=== PATIENT | female | born 1970 | race African-American/Black ===

== ENCOUNTER 2021-12-04 14:44 | Inpatient (IN) | payer OTHER ==
[~2021-12-04] VITALS: Ht 309.9 cm; Wt 52.2 kg
[2021-12-04] MEDS ORDERED: LAMICTAL150 M1 PO (15:11)
--- NOTE | 2021-12-04 15:11 | NUR ---
PTE SE RECIBE EN [place] Y DESORIENTADA. PTE VINO ACOMPANADA DE CAMARGO HERMANA. PTE TUVO VARIOS EPISODIOS DE EPILEPSIA EL JASON. VIENE REFERIDO POR DR ANDREIA WARD. HERMANA DE PTE VERBALIZA QUE TIENE DOLOR EN LA ESPALDA BAJA. SE MIDE S/V Y SE UBICA EN OBSERVACION CAMA 8. PENDIENTE A EVALUACION MEDICA.
--- NOTE | 2021-12-04 16:45 | NUR ---
TX. OFRECIDO POR MIS. VILLARREAL QUIEN ORIENTA AL PACIENTE SOBRE EL TX. EXTRAE MUESTRAS DE KILLIAN Y CANALIZA BAJO MEDIDAS ASEPTICAS ROTULA Y ENVIA AL LABORATORIO.
--- NOTE | 2021-12-04 23:09 | NUR ---
SE RECIBE PTE ALERTA ORIENTADA X 3,EN ALBERTO CON BARANDAS ELEVADAS POR CAMARGO SEGURIDAD,CANALIZADA CON ANGIO #20 RL,LA AREA RON DE EDEMA Y ERITEMA BAJANDO KCL 40MEQ/1000 BAJANDO A 125 ML/HR BAJANDO POR IVPUMP.PENDIENTE CONSULTA MEDICA CON .
--- NOTE | 2021-12-05 00:40 | NUR ---
SE ORIENTA PTE Y FAMILIAR SOBRE TX, LO CUAL REFIEREN ENTENDER. SE REALIZA JOSE DE MUESTRAS UTILIZANDO TECNICAS ASEPTICAS.
--- NOTE | 2021-12-05 01:40 | NUR ---
SE REALIZA PROCEDIMIENTO DE SONI JUNTO A RN HERNANDEZ Y RN MENDOZA, UTILIZANDO TECNICAS ASEPTICAS.
== END 2021-12-12 17:28 | disposition home or self-care (01) | DRG 603 ==
LOC: ER 14:44 → MEDI 12-05 02:07
PROVIDERS: ADMIT Internal Medicine; ATTEND Internal Medicine
PROC: B343ZZ3 Ultrasonography of Right Common Carotid Artery, Intravascular (ICD-10-PCS; principal; 2021-12-04)
PROC: BW28ZZZ Computerized Tomography (CT Scan) of Head (ICD-10-PCS; 2021-12-04)
PROC: BW21YZZ Computerized Tomography (CT Scan) of Abdomen and Pelvis using Other Contrast (ICD-10-PCS; 2021-12-04)
PROC: B246ZZZ Ultrasonography of Right and Left Heart (ICD-10-PCS; 2021-12-04)
PROC: BT4JZZZ Ultrasonography of Kidneys and Bladder (ICD-10-PCS; 2021-12-04)
PROC: BR2CYZZ Computerized Tomography (CT Scan) of Pelvis using Other Contrast (ICD-10-PCS; 2021-12-04)
PROC: BW38ZZZ Magnetic Resonance Imaging (MRI) of Head (ICD-10-PCS; 2021-12-04)
PROC: 4A12X4Z Monitoring of Cardiac Electrical Activity, External Approach (ICD-10-PCS; 2021-12-05)
PROC: 30233N1 Transfusion of Nonautologous Red Blood Cells into Peripheral Vein, Percutaneous Approach (ICD-10-PCS; 2021-12-05)
PROC: BW4GZZZ Ultrasonography of Pelvic Region (ICD-10-PCS; 2021-12-06)
DX: L02.211 Cutaneous abscess of abdominal wall (principal); N13.2 Hydronephrosis with renal and ureteral calculous obstruction; K56.690 Other partial intestinal obstruction; G40.801 Other epilepsy, not intractable, with status epilepticus; G80.8 Other cerebral palsy; D50.8 Other iron deficiency anemias; E87.6 Hypokalemia; R41.82 Altered mental status, unspecified; Z20.822 Contact with and (suspected) exposure to COVID-19
CPT/HCPCS: 70551; 72196

== ENCOUNTER 2022-07-23 08:45 | Inpatient (IN) | payer OTHER ==
[~2022-07-23] VITALS: Ht 165.1 cm; Wt 49.9 kg
[~2022-07-23 08:45] MED LIST: LAMICTAL150 M1 PO
[2022-07-26] MEDS ORDERED: KEPPRA500 MG PO (11:03)
== END 2022-07-27 14:02 | disposition home or self-care (01) | DRG 330 ==
LOC: OB/GYN 07-25 06:00 → O/R 07-25 06:00 → OB/GYN 07-25 07:00
PROVIDERS: ADMIT Obstetrics & Gynecology Gynecologic Oncology; ATTEND Obstetrics & Gynecology Gynecologic Oncology
PROC: 0DTJ0ZZ Resection of Appendix, Open Approach (ICD-10-PCS; 2022-07-25)
PROC: 0DJD8ZZ Inspection of Lower Intestinal Tract, Via Natural or Artificial Opening Endoscopic (ICD-10-PCS; 2022-07-25)
PROC: 0DBW0ZZ Excision of Peritoneum, Open Approach (ICD-10-PCS; 2022-07-25)
PROC: 0DBU0ZZ Excision of Omentum, Open Approach (ICD-10-PCS; 2022-07-25)
PROC: 0DNW0ZZ Release Peritoneum, Open Approach (ICD-10-PCS; 2022-07-25)
PROC: 0UB60ZZ Excision of Left Fallopian Tube, Open Approach (ICD-10-PCS; 2022-07-25)
PROC: 0UT10ZZ Resection of Left Ovary, Open Approach (ICD-10-PCS; 2022-07-25)
PROC: 0TN70ZZ Release Left Ureter, Open Approach (ICD-10-PCS; 2022-07-25)
PROC: 3E1M38Z Irrigation of Peritoneal Cavity using Irrigating Substance, Percutaneous Approach (ICD-10-PCS; 2022-07-25)
PROC: 07BC0ZZ Excision of Pelvis Lymphatic, Open Approach (ICD-10-PCS; 2022-07-25)
PROC: 0DQN0ZZ Repair Sigmoid Colon, Open Approach (ICD-10-PCS; principal; 2022-07-25 07:00)
DX: K36 Other appendicitis (principal); K56.50 Intestinal adhesions [bands], unspecified as to partial versus complete obstruction; K91.71 Accidental puncture and laceration of a digestive system organ or structure during a digestive system procedure; N73.6 Female pelvic peritoneal adhesions (postinfective)

== ENCOUNTER 2024-03-19 13:13 | Emergency (ER) | payer OTHER ==
[~2024-03-19] VITALS: Ht 165.1 cm; Wt 59.9 kg
[~2024-03-19 13:13] MED LIST changes: +KEPPRA500 MG PO
[2024-03-19 17:19] LABS: HEMATOCRIT 34.4 % (36.0-45.00); HEMOGLOBIN 11.7 g/dL (12.0-15.00); MEAN CELL VOLUME 91.9 fL (80.00-100.00); MEAN CORPUSCULAR HEMOGLOBIN 31.3 pg (27.00-32.0); MEAN CORPUSCULAR HGB CONC 34.1 g/dl (32.0-36.0); PLATELET COUNT 345 K/uL (150-450); RED BLOOD COUNT 3.74 M/uL (4.00-6.00); RED CELL DISTRIBUTION WIDTH 13.2 % (11.5-14.5)
[2024-03-19 17:23] LABS: URINE APPEARANCE Clear; URINE BACTERIA 69.7 uL (0.0-1933); URINE BILIRRUBIN Negative (NEGATIVE); URINE BLOOD Moderate; URINE COLOR Dark Yellow; URINE EPITHELIAL CELLS 35.7 uL (0.0-38.8); URINE GLUCOSE Negative (NEGATIVE); URINE LEUKOCYTE Small; URINE NITRATE Negative; URINE RBC 211.8 uL (0.0-20.8); URINE WBC 74.2 uL (0.0-23.2)
[2024-03-19 17:49] LABS: ALBUMIN 3.3 gm/dL (3.4-5.0); BILIRUBIN TOTAL 0.76 mg/dL (0.3-1.2); CALCIUM 10.3 mg/dL (8.5-10.1); CREATININE SERUM 0.59 mg/dL (0.55-1.02); GFR 106.62; GLOBULINA 4.3 G/DL (2.4-3.5); POTASSIUM 3.63 mEq/L (3.5-5.1); TOTAL PROTEIN 7.6 gm/dL (6.4-8.2)
[2024-03-19 17:50] LABS: URINE CAST 0.58 uL (0.0-1.40); URINE KETONE 40 (NEGATIVE); URINE PROTEIN 100 (NEGATIVE)
[2024-03-19 17:51] LABS: URINE CRYSTALS FEW /HPF; URINE MUCUS MODERATE
[2024-03-19] MEDS ORDERED: MACROBID 100 M100 MG PO (20:00)
== END 2024-03-19 20:53 | disposition home or self-care (01) ==
LOC: ER 13:15
PROVIDERS: Preventive Medicine Public Health & General Preventive Medicine
DX: N39.0 Urinary tract infection, site not specified (principal); G40.802 Other epilepsy, not intractable, without status epilepticus; B34.9 Viral infection, unspecified; Z20.822 Contact with and (suspected) exposure to COVID-19